=== PATIENT | male | born 1970 | race Caucasian/White ===

== ENCOUNTER 2019-09-15 21:28 | Emergency (ER) | payer BC, OTHER ==
[~2019-09-15] VITALS: Ht 175.3 cm; Wt 77.1 kg
--- NOTE | 2019-09-15 21:45 | NUR ---
PT AAOX4. ABULATORY. C/O R RIB PAIN S/P FALLING FROM LADDER. NO LOC OR KO. PLACED ON MONITOR AND PULSE OX. RR EVEN AND UNLABORED. NO ACUTE DISTRESS NOTED. WILL CONTINUE TO MONITOR PT. AWAITING MD FOR EVAL.
[2019-09-15] MEDS ORDERED: HYDROCODONE/APAP 10/325MG 1 EA TABLET ONE (22:20)
[2019-09-15] MEDS ORDERED: HYDROCODONE/APAP 10/325MG 1 EA TABLET PO ONE (22:30)
--- NOTE | 2019-09-15 22:40 | NUR ---
Patient discharged to home in stable condition. Written and verbal after care instructions given. Patient verbalizes understanding of instruction and RX. VSS. Pt ambulated with steady gait. RR even and unlabored. Pt taught how to use incentive spirometer. Denies pain.
[2019-09-15 22:41] VITALS: BP 145/81
== END 2019-09-15 22:50 | disposition home or self-care (01) ==
LOC: ER 21:29
DX: R07.81 Pleurodynia (principal); I10 Essential (primary) hypertension; W11.XXXA Fall on and from ladder, initial encounter; Y93.89 Activity, other specified; Y92.89 Other specified places as the place of occurrence of the external cause; Y99.8 Other external cause status
CPT/HCPCS: 71100-TC